=== PATIENT | male | born 1990 | race Caucasian/White ===

== ENCOUNTER 2019-09-15 09:03 | Emergency (ER) | payer OTHER ==
[2019-09-15 09:06] VITALS: RESP 16; TEMP 97.6
[2019-09-15] MEDS ORDERED: DIPH,PERTUS(ACELL)TETVAC-LF 0.5 ML VIAL IM ONE (09:23)
[2019-09-15] MEDS ORDERED: LIDOCAINE 1% INJ 10MG/ML (20 ML MDV) SQ ONE (09:23)
[2019-09-15] MEDS ORDERED: CEPHALEXIN 500MG STARTER PACK 4 CAP BTL PO STA (09:23)
--- NOTE | 2019-09-15 09:25 | ED ---
Wound/Laceration HPI - General Chief Complaint: Wound/Laceration Stated Complaint: facial lac Time Seen by Provider: 09/15/19 09:12 Source: patient, RN notes reviewed, old records reviewed Mode of arrival: ambulatory Limitations: no limitations - History of Present Illness Initial Comments: Patient is a 28-year-old male, who presents emergency department today for evaluation for a laceration over his right cheek. Patient reports that he fell last night around midnight hitting his face. He denies any intraoral laceration making this a through and through. His tetanus shot is not up-to-date. Patient reports no dental pain. Denies any head injury or loss consciousness. - Related Data Previous Rx's Medication Instructions Recorded Cephalexin [Keflex] 500 mg PO Q6HR 3 Days #12 cap 09/15/19 Allergies Allergy/AdvReac Type Severity Reaction Status Date / Time No Known Allergies Allergy Verified 09/15/19 09:06 Review of Systems ROS Statement: Those systems with pertinent positive or pertinent negative responses have been documented in the HPI. ROS Other: All systems not noted in ROS Statement are negative. Past Medical History Past Medical History: No Reported History History of Any Multi-Drug Resistant Organisms: None Reported Past Surgical History: No Surgical Hx Reported Past Psychological History: No Psychological Hx Reported Smoking Status: Never smoker Past Alcohol Use History: None Reported Past Drug Use History: None Reported General Exam - General Exam Comments Initial Comments: Alert and oriented 28-year-old male. No distress. Limitations: no limitations General appearance: alert, in no apparent distress Head exam: Present: atraumatic, normocephalic, normal inspection Eye exam: Present: normal appearance, PERRL, EOMI. Absent: scleral icterus, conjunctival injection, periorbital swelling ENT exam: Present: normal exam, mucous membranes moist, other (3cm jagged laceration over R cheek) Neck exam: Present: normal inspection. Absent: tenderness, meningismus, lymphadenopathy Respiratory exam: Present: normal lung sounds bilaterally. Absent: respiratory distress, wheezes, rales, rhonchi, stridor Cardiovascular Exam: Present: regular rate, normal rhythm, normal heart sounds. Absent: systolic murmur, diastolic murmur, rubs, gallop, clicks GI/Abdominal exam: Present: soft, normal bowel sounds. Absent: distended, tenderness, guarding, rebound, rigid Course Vital Signs 09/15/19 09:04 Temperature 97.6 F Pulse Rate 84 Respiratory 16 Rate Blood Pressure 134/89 O2 Sat by Pulse 99 Oximetry Procedures - Laceration Laceration #1 Site: face (right cheek) Size (cm): 3 Description: irregular Depth: simple, single layer Anesthetic Used: lidocaine 1% Anesthesia Technique: local infiltration Amount (mls): 4 Pre-repair: wound explored, irrigated extensively Type of Sutures: nylon Size of Sutures: 5-0 Number of Sutures: 4 Technique: simple, interrupted Patient Tolerated Procedure: well, no complications Medical Decision Making - Medical Decision Making 19-year-old male presents today with right cheek laceration. Patient reports he fell last night, hitting his cheek. He woke up this morning with a gaping wound. He states he felt that he needed stitches. Discusses is concern for delayed closure but due to the keeping this wound being a facial wound we will close it. Wound was irrigated and closed with 4 sutures. Discussed the Patient and follow-up with primary care doctor. She was given T Jax vaccination. Disposition Clinical Impression: Facial laceration Disposition: HOME SELF-CARE Condition: Good Instructions (If sedation given, give patient instructions): Facial Laceration (ED) Additional Instructions: Please return to the emergency room in 5 days to have sutures removed. Please leave wound covered for the first 24-48 hours and then leave open to air after that time. Please use clean soap and water to clean the suture area to prevent scabbing over the top of your sutures. Please watch for any signs of infection which may include but not limited to increased pain, swelling, redness, fever or chills. Please return to the emergency room if any signs of infection do occur. Please return to the emergency room for any other concerns or complications. Please use medication as discussed. Please follow up with family doctor if symptoms have not improved over the next two days. Please return to the emergency room if your symptoms increase or worsen or for any other concerns. Prescriptions: Cephalexin [Keflex] 500 mg PO Q6HR 3 Days #12 cap Is patient prescribed a controlled substance at d/c from ED?: No Referrals: Gwendolyn Boone DO [Primary Care Provider] - 1-2 days Time of Disposition: 10:30
[2019-09-15 10:50] VITALS: BP 131/82; PULSE 87
== END 2019-09-15 10:52 | disposition home or self-care (01) ==
LOC: EC 09:03
DX: S01.411A Laceration without foreign body of right cheek and temporomandibular area, initial encounter (principal); Z23 Encounter for immunization; W01.10XA Fall on same level from slipping, tripping and stumbling with subsequent striking against unspecified object, initial encounter
CPT/HCPCS: 90715; 99283; 12013; 90471; J2001

== ENCOUNTER 2020-12-03 16:29 | Emergency (ER) | payer OTHER ==
[2020-12-03 16:36] VITALS: BP 135/85; PULSE 103; RESP 18; TEMP 98.2
--- NOTE | 2020-12-03 16:46 | ED ---
ENT HPI - General Chief complaint: ENT Stated complaint: Sore Throat Time Seen by Provider: 12/03/20 16:37 Source: patient, RN notes reviewed Mode of arrival: ambulatory Limitations: no limitations - History of Present Illness Initial comments: Patient is a 30-year-old male presents to emergency department with a 24-hour history of a mild cough that is infrequently productive of white spit/phlegm. He notes that he can emergency room to get tested for Covid just to make sure. He noted that the cough is infrequently and doesn't occur any certain time a day and isn't worsened by any certain activity or inciting incident. She denied any exposure to any positive Covid people or family members. He denied any chest pain shortness of breath headache nausea vomiting diarrhea constipation fever fatigue chills. - Related Data Previous Rx's Medication Instructions Recorded Cephalexin [Keflex] 500 mg PO Q6HR 3 Days #12 cap 09/15/19 Allergies Allergy/AdvReac Type Severity Reaction Status Date / Time No Known Allergies Allergy Verified 12/03/20 16:35 Review of Systems ROS Statement: Those systems with pertinent positive or pertinent negative responses have been documented in the HPI. ROS Other: All systems not noted in ROS Statement are negative. Past Medical History Past Medical History: No Reported History History of Any Multi-Drug Resistant Organisms: None Reported Past Surgical History: No Surgical Hx Reported Past Psychological History: No Psychological Hx Reported Smoking Status: Never smoker Past Alcohol Use History: None Reported Past Drug Use History: None Reported General Exam Limitations: no limitations General appearance: alert, in no apparent distress Head exam: Present: atraumatic, normocephalic, normal inspection Eye exam: Present: normal appearance, PERRL, EOMI. Absent: scleral icterus, conjunctival injection, periorbital swelling ENT exam: Present: normal exam, mucous membranes moist Neck exam: Present: normal inspection. Absent: tenderness, meningismus, lymphadenopathy Respiratory exam: Present: normal lung sounds bilaterally. Absent: respiratory distress, wheezes, rales, rhonchi, stridor Cardiovascular Exam: Present: regular rate, normal rhythm, normal heart sounds. Absent: systolic murmur, diastolic murmur, rubs, gallop, clicks GI/Abdominal exam: Present: soft, normal bowel sounds. Absent: distended, tenderness, guarding, rebound, rigid Extremities exam: Present: normal inspection, full ROM, normal capillary refill. Absent: tenderness, pedal edema, joint swelling, calf tenderness Neurological exam: Present: alert, oriented X3, CN II-XII intact Psychiatric exam: Present: normal affect, normal mood Skin exam: Present: warm, dry, intact, normal color. Absent: rash Course Vital Signs 12/03/20 16:33 Temperature 98.2 F Pulse Rate 103 H Respiratory 18 Rate Blood Pressure 135/85 O2 Sat by Pulse 96 Oximetry Medical Decision Making - Medical Decision Making 30-year-old male complaining of infrequent cough for the last 24 hours. Wanted to get tested for covert. Covid swab ordered. Patient informed that it will take 2-5 days for results come back and he will be contacted if results are positive. Vital signs are stable patient is afebrile Case discussed with Dr. Garcia, patient discharged home with conservative management. Disposition Clinical Impression: Acute viral pharyngitis Disposition: HOME SELF-CARE Condition: Stable Instructions (If sedation given, give patient instructions): Pharyngitis (ED) Additional Instructions: Please return to the Emergency Department if symptoms worsen or any other concerns. We'll call with any positive results. Take [id number] cough syrup, anti-inflammatories for symptomatic control. Rest, increase oral fluid intake. If you believe you are sick quarantine for 10-14 days. Per CDC guidelines Is patient prescribed a controlled substance at d/c from ED?: No Referrals: Gwendolyn Boone DO [Primary Care Provider] - 1-2 days Time of Disposition: 17:00
== END 2020-12-03 17:37 | disposition home or self-care (01) ==
LOC: EC 16:29
DX: J02.8 Acute pharyngitis due to other specified organisms (principal); B97.89 Other viral agents as the cause of diseases classified elsewhere
CPT/HCPCS: 99283; U0003; U0005

== ENCOUNTER → 2021-01-31 | Outpatient (CLI) | payer OTHER ==
--- NOTE | 2021-01-31 12:35 | XR ---
EXAMINATION TYPE: XR knee limited LT DATE OF EXAM: 01/31/2021 COMPARISON: NONE HISTORY: Pain TECHNIQUE: 2 view submitted FINDINGS: Small amount of fluid shoulders. Mild hypertrophic change of the upper margin of patella. N o erosive changes. No acute fracture or dislocation. IMPRESSION: 1. Small amount of fluid in the suprapatellar bursa. If concern for internal derangement, correlate w ith MRI
== END | disposition home or self-care (01) ==
LOC: RADXRMAIN 12:11
PROVIDERS: ATTEND Family Medicine
DX: M25.562 Pain in left knee (principal)

== ENCOUNTER → 2022-05-04 | Outpatient (CLI) | payer OTHER ==
--- NOTE | 2022-05-05 01:08 | MR ---
EXAMINATION TYPE: MR knee RT wo con DATE OF EXAM: 05/04/2022 COMPARISON: None HISTORY: Rt knee pain and swelling since March 16 Multiplanar multiecho imaging of the right knee with no contrast. There is apparent complete tear of the anterior cruciate ligament. The posterior cruciate ligament is intact. There is a moderate size knee joint effusion. The medial and lateral menisci appear fairly n ormal. Joint spaces appear normal. The collateral ligaments are intact. No fracture seen. The patella is intact. There is slight increased signal in the posterior medial tibial condyle. IMPRESSION: Complete tear anterior cruciate ligament with large joint effusion. No evidence of meniscal tear. The re is noted a minimal bone bruise in the posterior aspect of the medial tibial condyle.
== END | disposition home or self-care (01) ==
LOC: RADMRIMAIN 19:50
PROVIDERS: ATTEND Orthopaedic Surgery
DX: M25.561 Pain in right knee (principal)

== ENCOUNTER → 2022-05-31 | Outpatient (CLI) | payer OTHER ==
[2022-05-31 18:01] LABS: Basophils # (A) 0.03 X 10*3/uL (0.00-0.10); Basophils % (A) 0.4 %; Eosinophils # (A) 0.28 X 10*3/uL (0.04-0.35); Eosinophils % (A) 3.3 %; HCT 47.1 % (39.6-50.0); HGB 15.6 g/dL (13.0-17.0); Immature Grans, Automated 0.2 %; Lymphocytes # (A) 1.54 X 10*3/uL (0.90-5.00); Lymphocytes % (A) 18.1 %; MCH 29.4 pg (27.0-32.0); MCHC 33.1 g/dL (32.0-37.0); MCV 88.7 fL (80.0-97.0); Mean Platelet Volume 10.2 fL (9.5-12.2); Monocytes # (A) 0.75 X 10*3/uL (0.20-1.00); Monocytes % (A) 8.8 %; NRBC Per 100 WBC 0 /100 WBCS (0.0-0.0); Neutrophils # (A) 5.91 X 10*3/uL (1.80-7.70); Neutrophils % (A) 69.2 %; Platelet Count 278 X 10*3/uL (140-440); RBC 5.31 X 10*6/uL (4.40-5.60); RDW 13.1 % (11.5-14.5); WBC 8.53 X 10*3/uL (4.50-10.00)
[2022-05-31 18:02] LABS: Anion Gap 9.8 mmol/L (10.00-18.00); Carbon Dioxide 27.7 mmol/L (20.0-27.5); Potassium 4.5 mmol/L (3.5-5.5)
== END | disposition home or self-care (01) ==
LOC: LABPAT 12:25
PROVIDERS: ATTEND Orthopaedic Surgery
DX: Z01.812 Encounter for preprocedural laboratory examination (principal); S83.511A Sprain of anterior cruciate ligament of right knee, initial encounter; Y99.9 Unspecified external cause status
CPT/HCPCS: 80051; 85025

== ENCOUNTER 2022-06-07 07:54 | Day surgery (SDC) | payer OTHER ==
[2022-06-05 15:42] VITALS: BMI 24.4
--- NOTE | 2022-06-07 05:32 | HP ---
HISTORY AND PHYSICAL DATE OF SURGERY: 06/07/2022. HISTORY OF PRESENT ILLNESS: Evie Schaeffer is a 31-year-old patient seen with progressive right knee pain and instability consistent with anterior cruciate ligament tear. We discussed options. He elected to proceed with right knee arthroscopy to include allograft ACL reconstruction. Consent was obtained. PAST MEDICAL HISTORY: Noncontributory. PAST SURGICAL HISTORY: Left knee arthroscopy. DAILY MEDICATIONS: None. ALLERGIES: None. SOCIAL HISTORY: Denies tobacco use. PHYSICAL EVALUATION OF RIGHT KNEE: Range of motion -2/3 to 120. Mild effusion. Tenderness medial joint line. Positive medial Arturo's. +2/3 [place] with soft endpoint. Pivot shift positive. Distal neurovascular exam is intact. RADIOGRAPHS: Radiographs of the right knee revealed no osseous abnormality. MRI right knee revealed ACL tear. IMPRESSION: Internal derangement right knee with ACL tear. PLAN: Right knee arthroscopy with allograft ACL reconstruction and debridement. MMODL / IJN: [id number] /
[~2022-06-07 07:54] MED LIST: LACTATED RINGERS 1,000 ML IV SCH; ONDANSETRON 4 MG/2 ML VIAL IVP ONE; fentaNYL (PF) 50 MCG/ML 2 ML AMP IV PRN
[2022-06-07] MEDS ORDERED: ONDANSETRON 4 MG/2 ML VIAL ONE (08:44)
[2022-06-07] MEDS ORDERED: MIDAZOLAM 2 MG/2 ML VIAL IVP ONE (08:55)
[2022-06-07] MEDS ORDERED: fentaNYL (PF) 50 MCG/ML 2 ML AMP IVP ONE (08:56)
[2022-06-07] MEDS ORDERED: PROPOFOL 10 MG/ML 20 ML VIAL IV ONE (09:35)
[2022-06-07] MEDS ORDERED: fentaNYL (PF) 50 MCG/ML 2 ML AMP ONE (09:35)
[2022-06-07] MEDS ORDERED: LIDOCAINE 2% INJ 20 MG/ML (2 ML VIAL) ONE (09:35)
[2022-06-07] MEDS ORDERED: MIDAZOLAM 2 MG/2 ML VIAL ONE (09:35)
[2022-06-07] MEDS ORDERED: ROPIVACAINE 5 MG/ML 30 ML VIAL ONE (09:35)
--- NOTE | 2022-06-07 10:50 | P.ANPRN ---
Procedure Note - Anesthesia - Nerve Block Performed Right Adductor Canal Time Out Performed: Yes (08:54) Date of Procedure: 06/07/22 Procedure Start Time: Procedure Stop Time: : Location of Patient: PreOp Indication: Acute Post-Operative Pain, Requested by Surgeon (Dr Gottlieb) Sedation Type: Sedate with meaningful contact maintained Preparation: Sterile Prep Position: Supine Catheter: None Needle Types: Pajunk Needle Gauge: 21 Ultrasound used to visualize needle placement: Yes Ultrasound used to observe medication spread: Yes Injectate: 0.5% Ropivacaine (see comment for volume) (20cc) Blood Aspirated: No Pain Paresthesia on Injection Noted: No Resistance on Injection: Normal Image Stored and Saved: Yes Events: Uneventful and Well Tolerated
--- NOTE | 2022-06-07 11:33 | P.OP ---
Date of Procedure: 06/07/22 Preoperative Diagnosis: Internal derangement right knee Postoperative Diagnosis: 1. Anterior cruciate ligament tear right knee 2. Medial meniscal tear right knee 3. Osteochondral defect medial femoral condyle right 4. Reactive synovitis medial, lateral and super patellar compartments right knee Procedure(s) Performed: 1. Arthroscopic allograft ACL reconstruction right knee 2. Arthroscopic partial medial meniscectomy right knee 3. Arthroscopic microfracture medial femoral condyle right knee 4. Arthroscopic partial synovectomy medial, lateral and suprapatellar compartments right knee Implants: 2Arthrex Endobutton was 1Arthrex 4.75 swivel lock anchor Anesthesia: GETA, regional (Adductor canal block) Surgeon: Nino Shields Credit Risk Specialist #1: Juan Francisco Hall Estimated Blood Loss (ml): 15 Pathology: none sent Condition: stable Disposition: PACU Indications for Procedure: 31-year-old patient seen with right knee pain and instability consistent with anterior cruciate ligament tear. After treatment options were discussed with him, he elected to proceed with allograft ACL reconstruction. Consent regarding procedure was obtained. Operative Findings: See description of procedure Description of Procedure: Patient was taken to the operative suite after having and adductor canal block performed by the department of anesthesia for postoperative pain management. Patient underwent a general anesthetic by the department of anesthesia. Patient was given preoperative antibiotics. The right lower extremity was placed in a well-padded arthroscopic leg thompson. The right leg was prepped and draped in the normal sterile orthopedic fashion. A lateral parapatellar and suprapatellar incision was made. Trochars were inserted. Arthroscopy was initiated. S uprapatellar pouch revealed diffuse thick reactive synovitis. The patellofemoral joint appeared to articulate congruently. There was no chondral malacia present. The scope was guided into the medial gutter. No loose bodies were identified. The scope was then guided into the medial compartment. A medial parapatellar incision was made. Trocar inserted followed by probe. There was a radial tear anterior horn medial meniscus. There was an osteochondral defect along the medial femoral condyle along its lateral aspect measuring about 1 cm diameter. There was some reactive synovitis anteriorly. Scope and probe were then guided into the intercondylar notch. There was a complete ACL tear noted. At this point the graft was opened and taken to the back table. Francois ELLIS now began preparing the graft for implantation.. The scope and probe were then guided into lateral compartment. The lateral meniscus was probed and found to be stable. There was no chondromalacia involving lateral compartment. There was some reactive synovitis anteriorly. A shaver was introduced and I performed a partial synovectomy. Shaver was now removed. There was good decompression synovitis. I now guided the scope back into the medial compartment. I performed a partial medial meniscectomy. I performed a partial synovectomy. I now performed a microfracture to that osteochondral defect of the medial femoral condyle penetrating the bone with result bleeding at the microfracture site. The residual meniscus was stable. There was good decompression of synovitis. I now guided the scope back into the intercondylar notch. I debrided out the remnant stump of the anterior cruciate ligament. I noted the posterior cruciate to be completely intact. I performed a notchplasty. With assistance of Francois ELLIS I created a femoral tunnel and shuttled a shuttle suture through that. With the assistance of Francois ELLIS now created and all inside tibial tunnel and shuttled a shuttle suture through that as well. The graft was now brought to the operative field. With assistance of Francois ELLIS shuttle the femoral side into the femoral tunnel visually flipping the button and noted was secure. We now shuttled approximate 25 mm of graft into the femoral tunnel. We now with assistance of Francois ELLIS shuttle the tibial graft into the tibial side total and pulled all the way flush. We good position of the graft. We now remove the scope from the joint. We took leg into full extension. We now secured the tibial side graft with our tibial button under appropriate tension with the knee extended. I now drilled a hole in that proximal tibia and passed our internal brace stitch through a 4.75 Arthrex swivel lock anchor. Under appropriate tension that anchor was secured into the proximal tibia with good fixation noted. All residual suture limbs were clipped. The scope was now introduced back into the joint. We noted the graft to be in good position with excellent intraoperative stability noted. The knee was taken through full range of motion with full extension good intraoperative overall stability. The scope was in guided back into the suprapatellar compartment. I introduced a motorized shaver into the super patellar compartment debriding out some piecemeal fragments of meniscus I encountered as well as performing a partial synovectomy. The shaver was now removed. There was good decompression synovitis. I now took one more look around the entire knee, no residual debris. Instruments were now removed from the joint. The portal sites and then a medial incision where repaired with nylon suture. Sterile dressings were applied. The patient was placed into a COLLETTE hose. The extremity was placed into a soft knee immobilizer. No tourniquet was utilized. The patient was awakened, transferred to a bed and taken to recovery stable satisfactory condition.
[2022-06-07] MEDS ORDERED: MEPERIDINE 50 MG/ML SYRINGE IVP ONE (11:37)
[2022-06-07] MEDS: HYDROmorphone 0.5 MG/0.5 ML SYRINGE IVP PRN ×2 (11:45→11:54)
[2022-06-07 11:54] VITALS: TEMP 97.2
[2022-06-07] MEDS ORDERED: HYDROcodone/APAP 7.5-325MG 1 EACH TAB ONE (12:36)
[2022-06-07] MEDS ORDERED: HYDROcodone/APAP 7.5-325MG 1 EACH TAB PO ONE (12:39)
[2022-06-07 13:23] VITALS: BP 148/80; PULSE 77; RESP 20
== END 2022-06-07 13:39 | disposition home or self-care (01) ==
LOC: OR 07:54
PROVIDERS: ATTEND Orthopaedic Surgery
DX: S83.511A Sprain of anterior cruciate ligament of right knee, initial encounter (principal); G89.18 Other acute postprocedural pain; S83.241A Other tear of medial meniscus, current injury, right knee, initial encounter; M21.961 Unspecified acquired deformity of right lower leg; M65.9 Synovitis and tenosynovitis, unspecified; X58.XXXA Exposure to other specified factors, initial encounter
CPT/HCPCS: 29888; 29881; 29879; 64447; 76942; C1713 ×5; C1762; J2250; J2175; J0690; J2405; J3010; J2795; J2704; J1170; J2001

== ENCOUNTER → 2022-12-25 | Outpatient (CLI) | payer OTHER ==
--- NOTE | 2022-12-25 14:56 | P.SLEEP ---
History of Present Illness H&P Date: 12/25/22 This is a as 32-year-old male patient, who was referred to me for concerns of sleep apnea. The patient's is currently in the [facility] [employer] and lives in [place] he does back and forth to [place]. He goes to bed at around 10 PM and wakes up 4:45 AM in the morning. He has no issues while driving to work. On his return, he gets a bit drowsy and sleepy. He is ever got to the point where he has to while driving or got himself into a motor vehicle accident because of feeling drowsy or sleepy. He is trying to lose weight and has lost approximately 15-20 pounds. Nevertheless, he has very loud snoring. His is unable to sleep within the same bedroom. No reported choking or gasping for air middle of the night. No reported witnessed apneas. No grinding of the teeth. No sleep paralysis. No hallucinations. No cataplexy. No nocturnal chest pain or heartburn or shortness of breath. No difficulty his memory or concentration. He obviously feels fatigued during the day. No history of head trauma. No substance abuse. Does not smoke cigarettes. Does not drink alcohol. No other major medical problems and comorbidities. No personal or family history of obstructive sleep apnea. His current Toledo score is at 8. Review of Systems Constitutional: Reports as per HPI, Reports daytime sleepiness Eyes: denies as per HPI, denies blurred vision, denies bulging eye, denies decreased vision, denies diplopia, denies discharge, denies dry eye, denies irritation, denies itching, denies pain, denies photophobia, denies loss of peripheral vision, denies loss of vision, denies tunnel vision/blind spots Ears: deny: decreased hearing, ear discharge, earache, tinnitus Ears, nose, mouth and throat: Reports as per HPI Breasts: absent: as per HPI, gynecomastia Cardiovascular: Reports as per HPI Respiratory: Reports snoring Gastrointestinal: Reports as per HPI Genitourinary: Reports as per HPI Musculoskeletal: Reports as per HPI Musculoskeletal: absent: ankle pain, ankle stiffness, ankle swelling Integumentary: Reports as per HPI Neurological: Reports as per HPI Psychiatric: Reports as per HPI Endocrine: Reports as per HPI Hematologic/Lymphatic: Reports as per HPI Allergic/Immunologic: Reports as per HPI Past Medical History Past Medical History: No Reported History Additional Past Medical History / Comment(s): RT ACL TEAR History of Any Multi-Drug Resistant Organisms: None Reported Past Surgical History: No Surgical Hx Reported Additional Past Surgical History / Comment(s): VASECTOMY. LT KNEE SX Past Anesthesia/Blood Transfusion Reactions: No Reported Reaction Past Alcohol Use History: None Reported - Past Family History Mother Family Medical History: No Reported History Medications and Allergies Home Medications Medication Instructions Recorded Confirmed Type Aspirin [Adult Low Dose Aspirin EC] 81 mg PO DAILY #14 tab 06/07/22 Rx Cephalexin [Keflex] 500 mg PO BID 5 Days #10 cap 06/07/22 Rx HYDROcodone/APAP 7.5-325MG [[place] 1 each PO Q6HR PRN #28 tab 06/07/22 Rx 7.5] Ibuprofen 800 mg PO Q8H PRN #40 tab 06/07/22 Rx Allergies Allergy/AdvReac Type Severity Reaction Status Date / Time No Known Allergies Allergy Verified 06/07/22 08:20 Physical Exam BP is 137/95, pulse is 69, respirations 12, temperature is 97.6 and oxygen saturations 97% on room air oxygen. Weight is 177, height is 5 feet and 11 inches and the size of the neck is 15 inches and Toledo score is at 8 with a body mass index of 24.6 The patient appeared well nourished and normally developed. Vital signs as documented. Head exam is unremarkable. No scleral icterus or corneal arcus noted. Neck is without jugular venous distension, thyromegaly, or carotid bruits. Carotid upstrokes are brisk bilaterally. The patient has significant crowding of posterior pharynx with a Mallampati class IV, the bite is essentially within normal limits, he does have some micrognathia . Lungs are clear to auscultation and percussion. Cardiac exam reveals the PMI to be normally sized and situated. Rhythm is regular. First and second heart sounds normal. No murmurs, rubs or gallops. Abdominal exam reveals normal bowel sounds, no masses, no organomegaly and no aortic enlargement. Extremities are nonedematous and both femoral and pedal pulses are normal.Examination of the skin revealed no evidence of significant rashes, suspicious appearing nevi or other concerning lesions.Neurologically, the patient is awake and alert and the patient does not have any focal neurological deficit. Cranial nerves are essentially intact. Assessment and Plan Plan: Loud snoring Hypersomnia and an Toledo score of 8, sleepiness and fatigue, not affecting his overall functionality Mallampati class IV and crowding of the oropharynx Plan We'll set of this patient for a screening polysomnogram Continue efforts to lose weight I asked the patient not to drive, especially if he is feeling drowsy or sleepy Maintain good sleep hygiene measures We'll continue to follow No major medical problems and comorbidities The patient does have some anatomic narrowing of his posterior oropharynx. It's likely that he may have an underlying component of sleep apnea. Will follow Sleep Note - Sleep Note Sleep Note: Temperature: Pulse Rate: Respiratory Rate: Blood Pressure: SpO2: Height: Weight: BMI: Neck Circumference:
== END ==
LOC: SLEEP 13:44
PROVIDERS: ATTEND Internal Medicine Critical Care Medicine
DX: R06.83 Snoring (principal); M26.4 Malocclusion, unspecified; Z99.89 Dependence on other enabling machines and devices
CPT/HCPCS: 99211

== ENCOUNTER → 2023-05-01 | Outpatient (CLI) | payer OTHER ==
--- NOTE | 2023-05-09 00:49 | MR ---
EXAMINATION TYPE: MR knee RT wo con DATE OF EXAM: 05/01/2023 COMPARISON: Radiograph 04/23/2023 and prior MRI 05/04/2022 HISTORY: 32-year-old male M25.561, Rt knee pain, Rt ACL surgery 1 yr ago TECHNIQUE: Multiplanar, multisequence imaging of the right knee is performed without IV contrast. FINDINGS: There is mild superficial fraying of mid patellar articular cartilage as well as minimal focal modera te thickness fissuring along the trochlear groove. Both medial and lateral articular cartilage volumes are maintained. Medial meniscus shows some obliquely oriented signal at the junction of the posterior horn and body c ontacting the inferior surface, coronal image 24 and sagittal image 7. Some degenerative signal is noted within the body of the lateral meniscus without discrete meniscal t ear. There are postsurgical changes of ACL graft reconstruction. There is thickening and intermediate sign al throughout the graft. We note susceptibility artifact relating to a button like structures both at the opening of the tibial tunnel and posteriorly near the lateral margin of the mid PCL. The exact e tiology for these structures are unclear. Review of the patient's 05/12/2023 radiographs shows no meta l density here. The Endobutton appear to be appropriately positioned on the radiographic examination. There is slight 7 mm nodular prominence to the anterior inferior margin of the ACL graft prior to div ing into the tibial tunnel. This nodular prominence extends just in front of the anterior roof of the intercondylar notch, refer to sagittal image 19. While there is no noemy tear identified, that signa l intensity is more than expected one year out of surgery. In addition, the femoral tunnel may be slightly inferior and lateral in placement and should be corre lated clinically. Additional areas of surgical change are present. There appears to be a second tunnel coursing paralle l and posterior to the femoral tunnel and a couple screw tracks in the proximal tibia located just me dial to the tibial tuberosity. Both of these should be correlated clinically. There is a small to moderate joint effusion. Slightly thickened medial plica. Postsurgical change of patient's previous arthroscopy portals. Extensor mechanism is intact. No Hu's cyst. The PCL and MCL are intact. Intermediate signal at the femoral attachment of the LCL proper suggestin g chronic sprain. The major of the LCL complex appears intact. Normal popliteal artery anatomy and muscle bulk. No suspicious bone marrow replacement. IMPRESSION: 1. Status post ACL graft reconstruction. A few postsurgical findings which should be correlated clini maryjo including (1) the appearance of what may be a second unused tunnel or drill hole located welt stitcher ior to the functional femoral tunnel. (2) A couple screw tracts within the proximal tibia located jus t medial to the tibial tuberosity. (3) Areas of buttonlike susceptibility artifact, one at the expect ed entry site of the tibial tunnel and a second located just lateral to the mid PCL fibers and welt stitcher ior to the ACL graft. No corresponding metal is seen here on the patient's 04/23/2023 radiographs. 2. Diffuse thickening and intermediate signal throughout the graft. This is more than expected one ye ar out of surgery. Graft malfunction or impingement are considerations. We do note a somewhat anterio r position to the femoral tunnel. There is also a 7 mm area of nodular prominence to the anterior mar gin of the distal graft. Some deformity to distal fibers from impingement versus early arthrofibrosis are considerations. 3. Small, oblique undersurface tear at the junction of the posterior horn and body of the medial meni scus. 4. Mild early degenerative change in the patellofemoral compartment, particularly along the mid sapp lar and trochlear groove articular cartilage. 5. Nonspecific thickened medial plica. Correlate for any symptoms of possible medial plica syndrome.
== END | disposition home or self-care (01) ==
LOC: RADMRIMAIN 20:15
PROVIDERS: ATTEND Orthopaedic Surgery
DX: M17.11 Unilateral primary osteoarthritis, right knee (principal); S83.241A Other tear of medial meniscus, current injury, right knee, initial encounter; M25.861 Other specified joint disorders, right knee; Z98.890 Other specified postprocedural states; X58.XXXA Exposure to other specified factors, initial encounter

== ENCOUNTER → 2023-05-30 | Outpatient (CLI) | payer OTHER ==
[2023-05-30 16:21] LABS: Basophils # (A) 0.06 X 10*3/uL (0.00-0.10); Basophils % (A) 1.3 %; Eosinophils # (A) 0.13 X 10*3/uL (0.04-0.35); Eosinophils % (A) 2.8 %; HCT 47.2 % (39.6-50.0); HGB 15.9 d/dL (13.0-17.0); Lymphocytes # (A) 1.48 X 10*3/uL (0.90-5.00); Lymphocytes % (A) 32.2 %; MCH 29.4 pg (27.0-32.0); MCHC 33.7 d/dL (32.0-37.0); MCV 87.4 FL (80.0-97.0); Mean Platelet Volume 9.7 FL (9.5-12.2); Monocytes # (A) 0.47 X 10*3/uL (0.20-1.00); Monocytes % (A) 10.2 %; NRBC Per 100 WBC 0 X 10*3/uL (0.00-0.01); Neutrophils # (A) 2.45 X 10*3/uL (1.80-7.70); Neutrophils % (A) 53.3 %; Platelet Count 282 X 10*3/uL (140-440); RDW 13.2 % (11.5-14.5)
== END | disposition home or self-care (01) ==
LOC: LABPAT 09:21
PROVIDERS: ATTEND Orthopaedic Surgery
DX: Z01.812 Encounter for preprocedural laboratory examination (principal); M23.91 Unspecified internal derangement of right knee
CPT/HCPCS: 36415; 85025